=== PATIENT | female | born 2000 | race Asian ===

== ENCOUNTER 2022-03-01 23:22 | Emergency (ER) | payer OTHER ==
[2022-03-01 23:29] VITALS: BP 140/89
[2022-03-02] MEDS ORDERED: cephALEXin 250 MG CAPSULE PO STA (01:09)
[2022-03-02] MEDS ORDERED: SULFAMETH/TRIMETH DS 800/160 MG TABLET PO STA (01:09)
--- NOTE | 2022-03-02 01:12 | ED Physician Documentation ---
PD HPI SKIN - Stated complaint Stated Complaint: PSORIASIS,LEG SWELLING - Chief complaint Chief Complaint: Wound - History obtained from History obtained from: Patient - Additional information Additional information: Patient is a 21-year-old female With a history of psoriasis presenting for evaluation of lower extremity wounds. Patient has recently had a flare of her psoriasis and is not currently on any medications for it. She reports recently using a pumice stone to scratch at the areas on her legs and has noticed areas of redness and some purulent drainage. She feels that her legs are swollen. She denies that one leg feels more swollen than the other. She denies a history of PE or DVT. She stopped taking medications for her psoriasis when she became . She has a 7-month-old at home and is breast-feeding. She is also new to the area And has her first appointment with PCP and dermatology next month.She did go to the walk-in clinic Last week and they gave her ibuprofen.Nothing makes her symptoms better or worse. She denies fever, chest pain, difficulty breathing, abdominal pain. Review of Systems Constitutional: denies: Fever Nose: denies: Congestion Cardiac: denies: Chest pain / pressure Respiratory: denies: Dyspnea GI: denies: Abdominal Pain : denies: Dysuria Skin: reports: Rash Musculoskeletal: denies: Back pain Neurologic: denies: Headache PD PAST MEDICAL HISTORY - Past Medical History Past Medical History: No Cardiovascular: None Respiratory: None Neuro: None Endocrine/Autoimmune: None GI: None COUNSELOR DORMITORY: None : None HEENT: None Psych: None Musculoskeletal: None Derm: Psoriasis - Past Surgical History Past Surgical History: No - Present Medications Home Medications: Ambulatory Orders Medication Instructions Recorded Confirmed Sulfamethox/Trimeth 800/160 1 each PO BID #14 tablet 03/02/22 [Bactrim Ds 800/160] cephALEXin [Keflex] 500 mg PO Q6H #28 cap 03/02/22 - Allergies Allergies/Adverse Reactions: Allergies Allergy/AdvReac Type Severity Reaction Status Date / Time No Known Drug Allergies Allergy Verified 03/01/22 23:27 - Social History Does the pt smoke?: No Smoking Status: Never smoker Does the pt drink ETOH?: Yes Does the pt have substance abuse?: No - Immunizations Immunizations are current?: No - POLST Patient has POLST: No PD ED PE NORMAL - General General: Alert and oriented X 3, No acute distress, Well developed/nourished - HEENT HEENT: Atraumatic, Moist mucous membranes - Neck Neck: Supple, no meningeal sign - Cardiac Cardiac: RRR, No murmur, Strong equal pulses - Respiratory Respiratory: No respiratory distress, Clear bilaterally - Derm Derm: Other (Significant psoriatic plaques to bilateral lower extremities, Mild surrounding erythema to several areas with Superficial open wounds) - Extremities Extremities: No calf tenderness / cord, Other (Pedal pulses intact) - Neuro Neuro: No motor deficit, Normal speech - Psych Psych: Normal mood Results - Vitals Vitals: Vital Signs - 24 hr 03/01/22 03/02/22 23:27 01:50 Temperature 36.5 C Heart Rate 86 Respiratory 16 16 Rate Blood Pressure 140/89 H O2 Saturation 100 Oxygen O2 Source Room air PD MEDICAL DECISION MAKING - ED course ED course: Patient presenting for evaluation of psoriasis and subsequent areas of erythema And reports of purulent drainage. No areas of fluctuance or abscess. Concern for infection as patient has been scratching and rubbing at the areas. Patient does not appear septic And do not suspect necrotizing infection. Low concern for DVT. Patient will be started on antibiotics and instructed on need for close follow-up with PCP or dermatology. She is advised on return precautions. Departure - Departure Disposition: 01 Home, Self Care Clinical Impression: Bilateral lower leg cellulitis, Psoriasis Condition: Stable Instructions: ED Infec Skin Cellulitis Prescriptions: Sulfamethox/Trimeth 800/160 [Bactrim Ds 800/160] 1 each PO BID #14 tablet cephALEXin [Keflex] 500 mg PO Q6H #28 cap Comments: Your legs were evaluated this evening and I am concerned that there are some areas of infection around the psoriasis. I have started you on 2 antibiotics which will help treat infection. I have given you the first dose tonight and will send the prescriptions to [facility] in [place]. Please make sure to complete the antibiotics as prescribed. Please also reach out to your primary care doctor to arrange for close follow-up. If you have any worsening symptoms please consider return to the emergency department. Discharge Date/Time: 03/02/22 01:56
== END 2022-03-02 01:56 | disposition home or self-care (01) ==
LOC: ED 23:22
DX: L03.116 Cellulitis of left lower limb (principal); L03.115 Cellulitis of right lower limb; L40.9 Psoriasis, unspecified
CPT/HCPCS: 99282; 99284; A9270